=== PATIENT | male | born 1965 | race Caucasian/White ===

== ENCOUNTER 2023-06-27 17:56 | Emergency (ER) | payer OTHER, SELFPAY ==
[2023-06-27 17:57] VITALS: BMI 27.0
[2023-06-27 18:00] VITALS: BP 135/91
[2023-06-27 18:19] LABS: % Basophils 0.5 % (0-2); % Eosinophils 5.9 % (0-6); % Immature Granulocytes 0.2 % (0-0.5); % Lymphocytes 19.2 % (20.5-51.1); % Monocytes 11.8 % (1.7-9.3); % Neutrophils 62.4 % (42.2-75.2); Absolute Eosinophils 0.4 10^3/uL (0-0.7); Absolute Lymphocytes 1.1 10^3/uL (1.2-3.4); Absolute Monocytes 0.7 10^3/uL (0.1-0.6); Absolute Neutrophils 3.7 10^3/uL (1.4-6.5); Hematocrit 38.6 % (39.0-52.0); Hemoglobin 13.7 g/dL (13.0-18.0); Mean Corp Hgb Conc. 35.5 g/dL (33.0-37.0); Mean Corpuscular Hgb 29.1 pg (27.0-31.0); Mean Platelet Volume 9.4 fL (7.4-10.4); Nucleated Red Blood Cells % 0 % (-); Platelet Count 224 10^3/uL (130-400); Red Blood Cell Count 4.71 10^6/uL (4.70-6.10); Red Cell Dist. Width 12.8 % (11.5-14.5)
[2023-06-27 18:29] LABS: APTT 30.8 Sec (23.4-35.0); INR 1.08
[2023-06-27 18:33] LABS: ALT (SGPT) 18 U/L (0-50); AST (SGOT) 23 U/L (17-59); Albumin 3.8 g/dl (3.5-5.0); Alkaline Phosphatase 72 U/L (38-126); Blood Urea Nitrogen 19 mg/dl (9-20); Carbon Dioxide 22 mmol/L (22-30); Chloride 108 mmol/L (98-107); Glucose 125 mg/dl (70-99); Potassium 3.6 mmol/L (3.5-5.1); Sodium 141 mmol/L (135-145); Total Bilirubin 0.4 mg/dl (0.2-1.3); Total Protein 6.4 g/dl (6.3-8.2); eGFR > 60.00
[2023-06-27 18:43] LABS: Troponin I < 0.012 ng/ml
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
[2023-06-27 19:51] LABS: Troponin I < 0.012 ng/ml
[2023-06-27 20:06] VITALS: BP 123/88
[2023-06-27 22:12] VITALS: BP 104/81
== END 2023-06-27 22:46 | disposition home or self-care (01) ==
LOC: EMR 17:56
PROVIDERS: Clinical Nurse Specialist Family Health; Emergency Medicine; EMERGENCY PHYSICIAN Emergency Medicine; FAMILY PHYSICIAN Family Medicine
DX: R07.89 Other chest pain (principal); R42 Dizziness and giddiness; R06.02 Shortness of breath; R53.1 Weakness; J44.9 Chronic obstructive pulmonary disease, unspecified; M54.9 Dorsalgia, unspecified; I10 Essential (primary) hypertension; E03.9 Hypothyroidism, unspecified; I48.91 Unspecified atrial fibrillation; F41.9 Anxiety disorder, unspecified; F32.A Depression, unspecified; G43.909 Migraine, unspecified, not intractable, without status migrainosus; Z87.820 Personal history of traumatic brain injury; Z79.01 Long term (current) use of anticoagulants; Z87.891 Personal history of nicotine dependence; Z86.718 Personal history of other venous thrombosis and embolism; Z86.711 Personal history of pulmonary embolism
CPT/HCPCS: 99284; 71275; 80053; 84484; 85025; 85610; 85730; 93005; Q9967

== ENCOUNTER 2023-07-03 06:35 | Day surgery (SDC) | payer OTHER, SELFPAY ==
[2023-07-03] VITALS (11 sets, daily range): BP systolic 104–129; BP diastolic 81–93; BMI 26.4
[2023-07-03] MEDS: NSS 280 ML IV (07:18)
--- NOTE | 2023-07-03 10:44 | ITS.CL.CATH ---
[employer] - Catheterization
Cardiac Catheterization
Procedure Report:
CARDIAC CATHETERIZATION REPORT
Date of Procedure: 07/03/2023
Referring: Tom Arroyo M.D.
INDICATION: High risk chest pain.
PROCEDURE:
1. Left heart catheterization.
2. Coronary angiography.
ACCESS:
6 [place] right radial artery.
CATHETERS:
1. 5 [place] JR4.
2. 5 [place] JL 3.5.
HEMODYNAMIC DATA
Weight (kg): 93.3
AO (s/d/x, mmHg): 95/68/80
LV (s/x mmHg): 97/10
LEFT VENTRICULOGRAPHY: Not performed.
CORONARY ANGIOGRAPHY
Dominance: Right.
Left Main: Normal size, bifurcating vessel. There is no coronary artery disease.
LAD: Normal size vessel giving rise to 1 significant diagonal. There is no coronary artery disease. 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
[place]: Congenitally absent.
Circumflex: Normal size, nondominant vessel giving rise to 3 obtuse marginals. OM1 is the most significant vessel and bifurcates into 2 separate daughter branches. OM 2 and OM 3 are small, 1.5 and 1.0 mm vessels respectively. There is no
coronary artery disease.
RCA: Large size, dominant vessel. There is no coronary artery disease.
INTERVENTION(S)
None.
Closure Device: Vascular band.
Radiation (mGy): 365.37
DAP (cm2.Gy): 34.2532
Fluoroscopy time (minutes): 2.8
Sedation time (minutes): 36
CONCLUSIONS
1. Right dominant circulation with no coronary artery disease. 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
2. Normal filling pressures (LVEDP = 10 mmHg at 93.3 kg).
RECOMMENDATIONS:
1. Expectant management after cardiac catheterization via right radial approach.
2. Limited weight bearing on the right wrist for one week.
3. Stable for outpatient cardiology follow-up.
Copy to: Tom Arroyo M.D., Hayden Garza D.O.
Manjit Paniagua DO, FACC, FACP
== END 2023-07-03 11:32 | disposition home or self-care (01) ==
LOC: CATH 06:35
PROVIDERS: ATTENDING PHYSICIAN Internal Medicine Cardiovascular Disease; FAMILY PHYSICIAN Family Medicine
DX: R07.9 Chest pain, unspecified (principal); I48.91 Unspecified atrial fibrillation; I10 Essential (primary) hypertension; E03.9 Hypothyroidism, unspecified; Z87.891 Personal history of nicotine dependence; Z82.49 Family history of ischemic heart disease and other diseases of the circulatory system; Z79.01 Long term (current) use of anticoagulants
CPT/HCPCS: 93458; C1894; Q9967

== ENCOUNTER → 2023-07-22 10:01 | Outpatient (REF) | payer OTHER, SELFPAY | LOC: RAD 10:01 | PROVIDERS: ATTENDING PHYSICIAN Internal Medicine Cardiovascular Disease; FAMILY PHYSICIAN Family Medicine | DX: I82.90 Acute embolism and thrombosis of unspecified vein (principal) | CPT/HCPCS: 93930 ==

== ENCOUNTER → 2023-08-09 15:07 | Outpatient (REF) | payer OTHER, SELFPAY | LOC: HWRCS 15:07 | PROVIDERS: ATTENDING PHYSICIAN Nurse Practitioner; FAMILY PHYSICIAN Family Medicine | DX: R07.89 Other chest pain (principal); R06.02 Shortness of breath; I10 Essential (primary) hypertension | CPT/HCPCS: 93306 ==

== ENCOUNTER 2024-03-24 02:05 | Emergency (ER) | payer OTHER, SELFPAY ==
[2024-03-24 02:08] VITALS: BP 146/94
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
[2024-03-24 02:55] VITALS: BMI 25.3
[2024-03-24] MEDS: TORADOL 30 MG IV (03:14)
[2024-03-24 03:18] LABS: % Basophils 0.3 % (0-2); % Eosinophils 1.3 % (0-6); % Immature Granulocytes 0.7 % (0-0.5); % Lymphocytes 5.3 % (20.5-51.1); % Monocytes 7.4 % (1.7-9.3); Absolute Eosinophils 0.2 10^3/uL (0-0.7); Absolute Immature Granulocytes 0.1 10^3/uL (0-0.05); Absolute Lymphocytes 0.7 10^3/uL (1.2-3.4); Absolute Monocytes 0.9 10^3/uL (0.1-0.6); Absolute Neutrophils 10.8 10^3/uL (1.4-6.5); Hematocrit 44.9 % (39.0-52.0); Hemoglobin 15.6 g/dL (13.0-18.0); Mean Corp Hgb Conc. 34.7 g/dL (33.0-37.0); Mean Corpuscular Hgb 29.1 pg (27.0-31.0); Mean Corpuscular Volume 83.6 fL (80.0-94.0); Mean Platelet Volume 8.9 fL (7.4-10.4); Nucleated Red Blood Cells % 0 % (-); Platelet Count 297 10^3/uL (130-400); Red Blood Cell Count 5.37 10^6/uL (4.70-6.10); Red Cell Dist. Width 12.7 % (11.5-14.5); White Blood Cell Count 12.7 10^3/uL (4.8-10.8)
[2024-03-24 03:33] LABS: ALT (SGPT) 25 U/L (0-50); AST (SGOT) 25 U/L (17-59); Albumin 4.2 g/dl (3.5-5.0); Alkaline Phosphatase 87 U/L (38-126); Blood Urea Nitrogen 20 mg/dl (9-20); Calcium 9.1 mg/dl (8.4-10.2); Carbon Dioxide 27 mmol/L (22-30); Chloride 99 mmol/L (98-107); Estimated Creatinine Clearance 104 ml/min; Glucose 148 mg/dl (70-99); Potassium 4.1 mmol/L (3.5-5.1); Sodium 137 mmol/L (135-145); Total Bilirubin 0.5 mg/dl (0.2-1.3); Total Protein 6.9 g/dl (6.3-8.2); eGFR > 60.00
[2024-03-24] MEDS: MORPHINE SULFATE 4 MG IV (03:50)
[2024-03-24 03:58] LABS: Uric Acid 8.1 mg/dl (3.5-8.5)
[2024-03-24 04:09] VITALS: BP 141/95
[2024-03-24 05:10] LABS: Erythrocyte Sed Rate 9 mm/hour (0-20)
[2024-03-24] MEDS: DELTASONE 50 MG PO (05:39)
== END 2024-03-24 06:15 | disposition home or self-care (01) ==
LOC: EMR 02:05
PROVIDERS: EMERGENCY PHYSICIAN Emergency Medicine; FAMILY PHYSICIAN Family Medicine
DX: M77.9 Enthesopathy, unspecified (principal); M79.641 Pain in right hand; M79.631 Pain in right forearm; M79.89 Other specified soft tissue disorders; J44.9 Chronic obstructive pulmonary disease, unspecified; I10 Essential (primary) hypertension; E03.9 Hypothyroidism, unspecified; I48.0 Paroxysmal atrial fibrillation; F41.9 Anxiety disorder, unspecified; F32.A Depression, unspecified; G43.909 Migraine, unspecified, not intractable, without status migrainosus; M19.90 Unspecified osteoarthritis, unspecified site; Z79.01 Long term (current) use of anticoagulants; Z86.711 Personal history of pulmonary embolism; Z86.718 Personal history of other venous thrombosis and embolism; Z87.820 Personal history of traumatic brain injury; Z87.891 Personal history of nicotine dependence; Z86.16 Personal history of COVID-19
CPT/HCPCS: 99284; 96374; 96375; 80053; 84550; 85025; 85652; 86140; 93005; 93971

== ENCOUNTER → 2024-06-30 11:53 | Outpatient (REF) | payer OTHER, SELFPAY | LOC: HWRAD 11:53 | PROVIDERS: ATTENDING PHYSICIAN Internal Medicine Rheumatology; FAMILY PHYSICIAN Family Medicine | DX: E03.9 Hypothyroidism, unspecified (principal); E53.8 Deficiency of other specified B group vitamins; E55.9 Vitamin D deficiency, unspecified; M05.9 Rheumatoid arthritis with rheumatoid factor, unspecified; R76.8 Other specified abnormal immunological findings in serum; M81.0 Age-related osteoporosis without current pathological fracture | CPT/HCPCS: 72040; 73100; 73130; 73523; 73560; 73565; 73630; 77080; 77081 ==

== ENCOUNTER 2024-12-01 19:33 | Emergency (ER) | payer OTHER, SELFPAY ==
[2024-12-01 19:40] VITALS: BP 158/88; BMI 24.8
[2024-12-01 20:00] LABS: Hematocrit 42.4 % (39.0-52.0); Hemoglobin 14.7 g/dL (13.0-18.0); Mean Corp Hgb Conc. 34.7 g/dL (33.0-37.0); Mean Corpuscular Volume 83.6 fL (80.0-94.0); Nucleated Red Blood Cells % 0 % (-); Platelet Count 277 10^3/uL (130-400); Red Cell Dist. Width 12.7 % (11.5-14.5)
[2024-12-01 20:12] LABS: INR 1.00; PT 13.5 Sec (11.4-14.6)
[2024-12-01 20:13] LABS: ALT (SGPT) 34 U/L (0-50); APTT 27.2 Sec (23.4-35.0); AST (SGOT) 23 U/L (17-59); Albumin 4.4 g/dl (3.5-5.0); Alkaline Phosphatase 65 U/L (38-126); Blood Urea Nitrogen 25 mg/dl (9-20); Calcium 9.1 mg/dl (8.4-10.2); Carbon Dioxide 29 mmol/L (22-30); Chloride 105 mmol/L (98-107); Estimated Creatinine Clearance 78 ml/min; Glucose 138 mg/dl (70-99); Potassium 4.5 mmol/L (3.5-5.1); Sodium 139 mmol/L (135-145); Total Protein 7.1 g/dl (6.3-8.2); eGFR > 60.00
[2024-12-01 20:32] VITALS: BP 119/91
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
[2024-12-01 21:00] VITALS: BP 126/89
[2024-12-01 22:00] VITALS: BP 120/81
== END 2024-12-01 22:23 | disposition home or self-care (01) ==
LOC: EMR 19:33
PROVIDERS: Emergency Medicine; EMERGENCY PHYSICIAN Emergency Medicine; FAMILY PHYSICIAN Family Medicine
DX: R04.0 Epistaxis (principal); T45.515A Adverse effect of anticoagulants, initial encounter; I48.91 Unspecified atrial fibrillation; I10 Essential (primary) hypertension; J44.9 Chronic obstructive pulmonary disease, unspecified; E03.9 Hypothyroidism, unspecified; F41.9 Anxiety disorder, unspecified; F32.A Depression, unspecified; Z79.01 Long term (current) use of anticoagulants; Z86.711 Personal history of pulmonary embolism; Z86.718 Personal history of other venous thrombosis and embolism; Z87.891 Personal history of nicotine dependence; Z82.49 Family history of ischemic heart disease and other diseases of the circulatory system
CPT/HCPCS: 99284; 70450; 80053; 85025; 85610; 85730